=== PATIENT | male | born 2000 | race Hispanic/Latino ===

== ENCOUNTER 2022-12-08 08:21 | Outpatient (CLI) | payer OTHER ==
[2022-12-08 09:58] LABS: #Basophils 0.1 thou/uL (0.0-0.2); #Eosinphils 0.3 thou/uL (0.0-0.7); #Monocytes 0.6 thou/uL (0.11-0.59); #Neutrophils 2.2 thou/uL (1.40-6.50); %Basophils 1.2 % (0.0-1.0); %Eosinophils 5.8 % (0.0-10.0); %Monocytes 10.8 % (0.0-10.0); %Neutrophils 43.2 % (42.0-75.0); Hematocrit 46.2 % (42.0-52.0); Hemoglobin 14.1 g/dL (14.0-18.0); Hypochromia SLIGHT = 6-15 cells (100X) (0-5/hpf); MDiff Complete? YES; Mean Corpuscular HGB CONC 30.4 g/dL (32.0-36.0); Mean Corpuscular Hemoglobin 23.3 pg (27.0-31.0); Mean Corpuscular Volume 76.7 fl (78.0-98.0); Mean Platelet Volume 9.4 fL (7.4-10.4); Microcytosis SLIGHT = 6-15 cells (100X) (0-5/hpf); Platelet Count 232 10x3/uL (130-400); RBC Distribution Width 12.4 % (11.5-14.5); Red Blood Cell (RBC) Count 6.03 mill/uL (4.70-6.10); White Blood Cell (WBC) Count 5.1 10x3/uL (4.8-10.8)
[2022-12-08 10:52] LABS: ALT (SGPT) 32 U/L (8-55); AST (SGOT) 24 U/L (5-34); Albumin 4.4 g/dL (3.5-5.0); Alkaline Phosphatase 199 U/L (40-110); Anion Gap 16 mmol/L (10-20); BUN (Urea Nitrogen) 14 mg/dL (8.9-20.6); Bilirubin, Total 0.6 mg/dL (0.2-1.2); Calc. Creatinine Clearance 0 mL/min (70-130); Calcium 10.1 mg/dL (7.8-10.44); Carbon Dioxide 27 mmol/L (22-29); Chloride 103 mmol/L (98-107); Estimated GFR 140; Globulin 3.4 g/dL (2.4-3.5); Glucose 90 mg/dL (70-105); Potassium 4.6 mmol/L (3.5-5.1); Protein, Total 7.8 g/dL (6.0-8.3); Sodium 141 mmol/L (136-145)
[2022-12-08 12:27] LABS: Free T4 (Free Thyroxine) 2.92 ng/dL (0.70-1.48)
== END 2022-12-08 08:22 | disposition home or self-care (01) ==
LOC: BURLAB 08:21
PROVIDERS: ATTEND Family Medicine
DX: E05.90 Thyrotoxicosis, unspecified without thyrotoxic crisis or storm (principal)
CPT/HCPCS: 36415; 80053; 84439; 84481; 85025

== ENCOUNTER 2022-12-29 13:37 | Outpatient (CLI) | payer OTHER | END 2022-12-29 13:38 | disposition home or self-care (01) | LOC: BURRAD 13:37 | PROVIDERS: ATTEND Family Medicine | DX: S69.91XA Unspecified injury of right wrist, hand and finger(s), initial encounter (principal); S52.611A Displaced fracture of right ulna styloid process, initial encounter for closed fracture ==